=== PATIENT | male | born 1980 | race Hispanic/Latino ===

== ENCOUNTER → 2019-05-22 | Outpatient (CLI) | payer BC ==
[~2019-05-22] MED LIST: ATORVASTATIN CA10 MG PO; BENTYL10 MG PO; PANTOPRAZOLE SO40 MG PO
--- NOTE | 2019-05-22 14:58 | Diagnostic Imaging Report ---
EXAMINATION: CHEST 2 VIEWS, RIBS UNILAT W/CXR INDICATION: Rib pain COMPARISON: None FINDINGS: LINES/TUBES:None LUNGS:The lungs are moderately inflated. No focal consolidation or pulmonary edema. PLEURA:No pleural effusion or pneumothorax. MEDIASTINUM:The cardiomediastinal silhouette appears normal in size and shape. BONES/SOFT TISSUES:No displaced rib fracture. ABDOMEN:No free air under the diaphragm. Status post total cystectomy. IMPRESSION: No displaced rib fracture. No focal pneumonia or pulmonary edema. Signed by: Erin Rajput MD on 05/22/2019 2:54 PM
== END ==
LOC: RAD 14:11
PROVIDERS: ATTEND Internal Medicine Critical Care Medicine
DX: S22.31XK Fracture of one rib, right side, subsequent encounter for fracture with nonunion (principal)
CPT/HCPCS: 71046; 71101

== ENCOUNTER → 2020-10-04 | Day surgery (SDC) | payer BC ==
[~2020-10-04] MED LIST changes: +BYSTOLIC5 MG PO; +FENTANYL CITRATE/PF 100MCG/2 ML INJ ONE; +HYOSCYAMINE SULFATE 0.5 MG/ML INJ ONE; +MIDAZOLAM HCL 2 MG/2 ML VIAL ONE; +PROPOFOL IV EMULSION 10 MG/ML 20 ML VIAL ONE
[2020-10-04 12:32] VITALS: BP 124/92
== END | disposition home or self-care (01) ==
LOC: OR 06:52
PROVIDERS: ATTEND Internal Medicine Gastroenterology
DX: K29.70 Gastritis, unspecified, without bleeding (principal); K63.5 Polyp of colon; K31.7 Polyp of stomach and duodenum; K25.9 Gastric ulcer, unspecified as acute or chronic, without hemorrhage or perforation; K20.90 Esophagitis, unspecified without bleeding; K31.89 Other diseases of stomach and duodenum; K21.9 Gastro-esophageal reflux disease without esophagitis; K64.8 Other hemorrhoids; I10 Essential (primary) hypertension; E78.5 Hyperlipidemia, unspecified; Z01.810 Encounter for preprocedural cardiovascular examination; Z01.812 Encounter for preprocedural laboratory examination; Z20.822 Contact with and (suspected) exposure to COVID-19
CPT/HCPCS: 43239; 45380; 45384; 93005; J1980; J2250; J2704; J3010; U0002; 45378

== ENCOUNTER → 2021-04-26 | Outpatient (CLI) | payer BC ==
[~2021-04-26] MED LIST changes: -FENTANYL CITRATE/PF 100MCG/2 ML INJ ONE; -HYOSCYAMINE SULFATE 0.5 MG/ML INJ ONE; -MIDAZOLAM HCL 2 MG/2 ML VIAL ONE; -PROPOFOL IV EMULSION 10 MG/ML 20 ML VIAL ONE
== END ==
LOC: US 08:39
PROVIDERS: ATTEND Family Medicine
DX: E78.5 Hyperlipidemia, unspecified (principal)
CPT/HCPCS: 76700